=== PATIENT | male | born 1955 | race Caucasian/White ===

== ENCOUNTER 2023-11-07 05:29 | Inpatient (IN) | payer OTHER ==
[~2023-11-07] VITALS: Ht 182.9 cm; Wt 108.6 kg
[2023-11-07 01:12] VITALS: RESP 20; TEMP 98.3; O2SAT 93
[2023-11-07] MEDS: ACETAMINOPHEN 500 MG TABLET ONE (05:41)
[2023-11-07] MEDS: oxyCODONE HCL 10 MG TAB.ER.12H PO ONE ×2 (05:44→07:07)
[2023-11-07] MEDS: ACETAMINOPHEN 500 MG TABLET PO ONE (06:03)
[2023-11-07] MEDS ORDERED: BUPIVACAINE /PF 0.25% 30 ML VIAL INJ ONE (07:00)
[2023-11-07] MEDS ORDERED: NS IRRIG SOLN 1000 ML IR ONE (07:00)
[2023-11-07] MEDS ORDERED: ePHEDrine sulfate 50 MG/ML VIAL ONE (07:00)
[2023-11-07] MEDS ORDERED: ONDANSETRON HCL 4 MG/2 ML VIAL ONE (07:00)
[2023-11-07] MEDS ORDERED: VANCOMYCIN HCL 1000 MG/VIAL IV ONE (07:00)
[2023-11-07] MEDS ORDERED: ceFAZolin SODIUM 2 GM VIAL ONE (07:00)
[2023-11-07] MEDS ORDERED: LR 1,000 ML IV.SOLN IV ONE (07:00)
[2023-11-07] MEDS ORDERED: WATER FOR IRRIGATION,STERILE 1,000 ML IRRIG.SOLN IR ONE (07:00)
[2023-11-07] MEDS ORDERED: SEVOFLURANE 15 MIN GAS INH ONE (07:00)
[2023-11-07] MEDS ORDERED: PROPOFOL 200MG/ 20ML VIAL (DIPRIVAN) IV ONE (07:00)
[2023-11-07] MEDS ORDERED: BUPIVACAINE /DEX PF 0.75% SPINAL 2 ML AMP INJ ONE (07:00)
[2023-11-07] MEDS ORDERED: MIDAZOLAM HCL 2 MG/2 ML VIAL (VERSED) ONE (07:00)
[2023-11-07] MEDS ORDERED: TRANEXAMIC ACID 1,000 MG/10 ML VIAL ONE (07:00)
[2023-11-07] MEDS ORDERED: fentaNYL CITRATE/PF 100 MCG/2 ML AMP ONE (07:00)
[2023-11-07] MEDS ORDERED: ONDANSETRON HCL 4 MG/2 ML VIAL IVP PRN ×2 (08:15→11:45)
[2023-11-07] MEDS ORDERED: HYDROmorphone 1 MG/ML INJ. CARTRIDGE IVP PRN ×4 (08:15→11:00)
[2023-11-07] MEDS ORDERED: LABETALOL 100 MG/ 20ML VIAL IVP PRN (08:15)
[2023-11-07] MEDS ORDERED: MEPERIDINE HCL/PF 25 MG/ML DISP.SYRIN IVP PRN (08:15)
[2023-11-07] MEDS: HYDROmorphone 1 MG/ML INJ. CARTRIDGE IVP PRN (09:43)
[2023-11-07] MEDS ORDERED: NALOXONE HCL 0.4 MG/ML AMP (NARCAN) IVP PRN ×3 (09:45)
[2023-11-07] MEDS ORDERED: LACTULOSE 20 GM/30 ML UDC PO PRN (09:45)
[2023-11-07] MEDS ORDERED: BISACODYL 10 MG/SUPPOSITORY RC PRN (09:45)
[2023-11-07] MEDS: HYDROmorphone 1 MG/ML INJ. CARTRIDGE ONE (09:45)
[2023-11-07] MEDS ORDERED: METOCLOPRAMIDE HCL 10 MG/2 ML VIAL IVP PRN (09:45)
[2023-11-07] MEDS ORDERED: DIPHENHYDRAMINE HCL 25 MG CAPSULE PO PRN (09:45)
[2023-11-07] MEDS: HYDROmorphone 2 MG/ML VIAL ONE (10:01)
[2023-11-07 10:41] VITALS: BP_SYST 156; PULSE 65; O2SAT 99
[2023-11-07] MEDS: hydrALAZINE HCL 20 MG/ML VIAL IVP PRN (10:45)
[2023-11-07] MEDS ORDERED: HYG25 PO (10:47)
[2023-11-07] MEDS ORDERED: SEMA1PEN3 (10:47)
[2023-11-07] MEDS ORDERED: APIX5TAB PO ×2 (10:47)
[2023-11-07] MEDS ORDERED: OMEP40CA20 PO (10:47)
[2023-11-07] MEDS ORDERED: ALLO100T PO (10:47)
[2023-11-07] MEDS ORDERED: NOR10 PO (10:47)
[2023-11-07] MEDS ORDERED: LIP20 PO (10:47)
[2023-11-07] MEDS ORDERED: FLEC50TA2 PO (10:47)
[2023-11-07] MEDS ORDERED: IRBE1TAB PO (10:47)
[2023-11-07] MEDS ORDERED: CHOL1CAP15 (10:47)
[2023-11-07] MEDS ORDERED: ASCO500T20 PO (10:47)
[2023-11-07] MEDS: hydrALAZINE HCL 20 MG/ML VIAL ONE (10:50)
[2023-11-07] MEDS ORDERED: oxyCODONE HCL 5 MG TABLET PO PRN ×2 (11:00)
[2023-11-07] MEDS ORDERED: traMADol HCL HCL 50 MG TABLET (ULTRAM) PO PRN (11:00)
[2023-11-07] MEDS ORDERED: LORATADINE 10 MG TABLET PO PRN (11:00)
[2023-11-07] MEDS ORDERED: CETI10CA20 PO (11:01)
[2023-11-07 12:00] VITALS: BP_SYST 137; PULSE 77; RESP 17; TEMP 98.2; O2SAT 94
[2023-11-07 12:40] VITALS: BP_SYST 137; PULSE 77; RESP 17; TEMP 98
[2023-11-07] MEDS: KETOROLAC TROMETHAMINE 10 MG TABLET (TORADOL) PO SCH (13:17)
[2023-11-07] MEDS: ACETAMINOPHEN 500 MG TABLET PO SCH (13:17)
[2023-11-07] MEDS: ceFAZolin SODIUM 2 GM in D5W 50 ML IV SCH (13:18)
[2023-11-07] MEDS: LR 1,000 ML IV SCH (13:18)
[2023-11-07 16:00] VITALS: BP_SYST 142; PULSE 73; RESP 17; TEMP 98.6; O2SAT 95
[2023-11-07] MEDS ORDERED: GABAPENTIN 100 MG CAPSULE PO SCH (17:30)
[2023-11-07] MEDS: GABAPENTIN 100 MG CAPSULE PO PRN (17:42)
[2023-11-07 20:00] VITALS: BP_SYST 120; PULSE 61; RESP 20; TEMP 98.2; O2SAT 93
[2023-11-07] MEDS: SENNOSIDES/DOCUSATE SODIUM 1 TAB TABLET(SENOKOT-S) PO SCH (22:17)
[2023-11-08 01:12] VITALS: RESP 20; TEMP 98.2; O2SAT 93
[2023-11-08 08:00] VITALS: BP_SYST 133; PULSE 70; RESP 18; TEMP 98.3; O2SAT 98; O2SAT 99
[2023-11-08] MEDS: CELECOXIB 200 MG CAPSULE PO SCH (10:37)
[2023-11-08 11:14] VITALS: BP_SYST 133; PULSE 79; RESP 16; TEMP 99.4; O2SAT 95
[2023-11-08 12:20] VITALS: BP_SYST 151; PULSE 78; RESP 18; TEMP 97.9; O2SAT 99
== END 2023-11-08 12:40 | disposition home or self-care (01) | DRG 470 ==
LOC: SMU 05:29
PROVIDERS: ADMIT Orthopaedic Surgery Sports Medicine; ATTEND Orthopaedic Surgery Sports Medicine
PROC: 0SRD0J9 Replacement of Left Knee Joint with Synthetic Substitute, Cemented, Open Approach (ICD-10-PCS; principal; 2023-11-07 07:10)
DX: M17.12 Unilateral primary osteoarthritis, left knee (principal)
CPT/HCPCS: 73560; 82948; 87081; 88305; 88311; 94070; 96379; 97110-GP; 97116-GP; 97530-GP; C1713; C1776; J0360; J1170; J2250; J2405; J2704; J3010; J3370; J3490; J7060; J7120